=== PATIENT | female | born 1970 | race Caucasian/White ===

== ENCOUNTER 2016-06-02 20:42 | Emergency (ER) | payer OTHER ==
[~2016-06-02] VITALS: Ht 160 cm; Wt 94.8 kg
[~2016-06-02 20:42] MED LIST: ASPIRIN81 M1 PO; ATORVASTATIN CA10 M1 PO; BACTRIM DS 8001 TA1 PO; BACTRIM DS 8001 TAB PO; CEPHALEXIN500 M1 PO; CHOLESTEROL; CIPRODEX 0.3%-7.5 ML OT; CIPROFLOXACIN500 MG PO; CLARITIN-D 12 H1 TAB PO; CLINDAMYCIN HC300 MG PO; CORTISPORIN SUS10 ML OT; CYCLOBENZAPRINE10 MG PO; DIFLUCAN100 MG PO; ERYTHROMYCIN5 MG/G2 OP; FIORICET 325 MG1 TAB PO; FLONASE ALLERG9.9 ML NAS; Fioricet 325 MG1 TAB PO; GLIMEPIRIDE4 M1 PO; GLUCOPHAGE PO; GLUCOTROL10 MG PO; HYDROCODONE BIT1 T11 PO; IRON325 M2 PO; JANUMET 1000 MG1 TA1 PO; KEFLEX500 MG PO; LEVEMIR10 ML SC; LEVEMIR100 U/ML SC; LEVOFLOXACIN500 MG PO; LIPITOR10 MG PO; LISINOPRIL5 MG PO; LOMOTIL 0.025 M1 TA1 PO; MEDROL DOSEPAK4 MG PO; METFORMIN1000 MG PO; NEURONTIN300 MG PO; NORCO 325 MG-51 TAB PO; NORCO 5-325 TA1 EACH PO; NOVOLOG 70/30 M10 ML SC; PANTOPRAZOLE SO40 MG PO; PERCOCET 325 MG1 TA6 PO; PHENERGAN25 M1 PO; PREDNISONE10 MG PO; PREDNISONE20 M1 PO; PROMETHAZINE25 M1 PO; SPRINTEC 35 MCG1 TA1 PO; ULTRAM50 MG PO; VENTOLIN H0.09 MG/AC INH; VIBRAMYCIN100 MG PO; VICODIN1 TAB PO; VICTOZA6 MG/ML SC; VITAMIN D22000 UNIT PO; VITAMIN D50000 I2 PO; ZANTAC 150150 MG PO; ZITHROMAX Z PA250 MG PO; ZOFRAN ODT4 MG SL; ZOFRAN4 MG PO; ZOLOFT50 MG PO; [UNRECOGNIZED DRUG - REMARK]
[2016-06-02] MEDS ORDERED: METFORMIN1000 MG PO (21:18)
[2016-06-02] MEDS ORDERED: HEARTBURN RELI150 MG PO (21:19)
[2016-06-02] MEDS ORDERED: PROMETHAZINE25 M1 PO (21:20)
[2016-06-02] MEDS ORDERED: CEFADROXIL500 M1 PO (21:45)
== END 2016-06-02 22:47 | disposition home or self-care (01) ==
LOC: ED 20:42
DX: S91.331A Puncture wound without foreign body, right foot, initial encounter (principal); M79.671 Pain in right foot; E11.9 Type 2 diabetes mellitus without complications; Z79.4 Long term (current) use of insulin; Z88.0 Allergy status to penicillin; Z88.1 Allergy status to other antibiotic agents; Z88.6 Allergy status to analgesic agent; Z88.8 Allergy status to other drugs, medicaments and biological substances; Z79.899 Other long term (current) drug therapy; W45.8XXA Other foreign body or object entering through skin, initial encounter; Y93.89 Activity, other specified; Y92.9 Unspecified place or not applicable; Y99.9 Unspecified external cause status

== ENCOUNTER → 2017-01-10 | Outpatient (CLI) | payer OTHER ==
[~2017-01-10] MED LIST changes: +CEFADROXIL500 M1 PO; +HEARTBURN RELI150 MG PO
== END | disposition home or self-care (01) ==
LOC: RAD 12:26
DX: M25.532 Pain in left wrist (principal)

== ENCOUNTER 2017-04-22 10:21 | Emergency (ER) | payer OTHER ==
[~2017-04-22] VITALS: Ht 160 cm; Wt 93.9 kg
[2017-04-22 10:57] LABS: BASO # 0.1 10*3/uL (0.0-0.1); BASO % 0.8 % (0.0-1.0); EOS # 0.1 10*3/uL (0.0-0.4); EOS % 1.3 % (1.0-4.0); HEMATOCRIT 40.4 % (37.0-47.0); HEMOGLOBIN 13.4 g/dl (12.0-16.0); LYMPH # 3.5 10*3/uL (1.3-4.4); LYMPH % 33.5 % (27.0-41.0); MEAN CELL VOLUME 80.2 fl (81.0-99.0); MEAN CORPUSCULAR HGB 26.6 pg (27.0-31.0); MEAN CORPUSCULAR HGB CONC 33.2 g/dl (33.0-37.0); MEAN PLATELET VOLUME 11.2 fl (9.6-12.3); MONO # 0.6 10*3/uL (0.1-1.0); MONO % 5.5 % (3.0-9.0); NEUT # 6.2 10*3/uL (2.3-7.9); NEUT % 58.5 % (47.0-73.0); PLATELET COUNT AUTOMATED 393 10*3/uL (130-400); RED BLOOD COUNT 5.04 10*6/uL (4.10-5.10); RED CELL DISTRI WIDTH 13.3 % (0-14.5); WHITE BLOOD COUNT 10.6 10*3/uL (4.8-10.8)
[2017-04-22 11:12] LABS: ALBUMIN 3.4 gm/dl (3.1-4.5); ALKALINE PHOSPHATASE 124 U/L (45-117); BUN 14 mg/dl (7-24); CHLORIDE 94 mmol/L (98-107); CREATININE 0.99 mg/dL (0.55-1.02); LIPASE 193 U/L (73-393); POTASSIUM 3.7 mmol/L (3.5-5.1); SGOT/AST 15 IU/L (3-35); SGPT/ALT 21 U/L (12-78); SODIUM 131 mmol/L (136-145); TOTAL PROTEIN 8.8 gm/dL (6.4-8.2)
[2017-04-22] MEDS ORDERED: ZOFRAN4 MG PO (11:15)
== END 2017-04-22 11:18 | disposition home or self-care (01) ==
LOC: ED 10:21
PROVIDERS: Nurse Practitioner Family
DX: R10.11 Right upper quadrant pain (principal); R11.0 Nausea; Z79.4 Long term (current) use of insulin; Z88.0 Allergy status to penicillin; Z88.6 Allergy status to analgesic agent; Z88.5 Allergy status to narcotic agent

== ENCOUNTER → 2017-04-25 | Outpatient (CLI) | payer OTHER | END | disposition home or self-care (01) | LOC: US 13:30 | DX: K76.0 Fatty (change of) liver, not elsewhere classified (principal) ==

== ENCOUNTER → 2017-06-08 | Outpatient (CLI) | payer OTHER | END | disposition home or self-care (01) | LOC: CT 08:50 | DX: R10.11 Right upper quadrant pain (principal) ==